=== PATIENT | female | born 1970 | race Caucasian/White ===

== ENCOUNTER 2017-06-14 10:48 | Observation (INO) | payer OTHER ==
[~2017-06-14] VITALS: Ht 165.1 cm; Wt 81.8 kg
[2017-06-14 11:40] LABS: HEMATOCRIT 46.7 % (36.0-46.0); MCH 30.4 PG (29.0-34.0); MCHC 33.8 G/DL (30.0-36.0); MEAN PLAT.VOLUME 10.1 uM^3 (9.5-12.4); PLATELET COUNT 184 K/uL (156-360); RBC DIS.WIDTH-CV 11.9 % (11.8-14.6); RBC DIS.WIDTH-SD 39.2 % (39-53); RED BLOOD COUNT 5.19 M/uL (3.80-5.20)
[2017-06-14 11:52] LABS: CHLORIDE 105 mEq/L (99-109); POTASSIUM 5.1 mEq/L (3.7-5.4); SODIUM 137 mEq/L (136-147)
[2017-06-14 11:54] LABS: GLUCOSE 133 mg/dL (70-99)
[2017-06-14 11:55] LABS: ANION GAP 8 MEQ/L (2-14)
[2017-06-14 11:56] LABS: TOTAL BILIRUBIN 0.7 mg/dL (0.0-1.0)
[2017-06-14 11:58] LABS: ALKALINE PHOSPHATASE 60 IU/L (3-129); GFR ESTIMATE (CALCULATED) > 59 mL/min/
[2017-06-14 11:59] LABS: UREA NITROGEN (BUN) 15 mg/dL (9-23)
[2017-06-14 12:08] LABS: QUANTITATIVE HCG < 4.0 MIU/ML
[2017-06-14 14:00] LABS: ADD MIUA? NO; BILIRUBIN NEGATIVE; BLOOD NEGATIVE; COLOR YELLOW ((YELLOW)); GLUCOSE (STRIP) NEGATIVE; KETONES 5; LEUKOCYTES NEGATIVE; NITRITE NEGATIVE; PROTEIN (STRIP) NEGATIVE; UCUL ADDED? NO; UROBILINOGEN 0.2 MG/DL (0.2-1.0)
[2017-06-14] MEDS ORDERED: BENTYL10 MG PO (14:06)
[2017-06-14] MEDS ORDERED: ZOFRAN ODT4 MG PO (14:06)
[2017-06-14 14:14] LABS: SPECIFIC GRAVITY 1.062 (1.000-1.030)
[2017-06-14] MEDS ORDERED: PANTOPRAZOLE SO20 MG PO (16:05)
[2017-06-14 17:26] VITALS: BP 111/69
[2017-06-14 20:00] VITALS: BP 106/59
[2017-06-14 20:54] LABS: C DIFF TOXIN NEGATIVE (NEGATIVE)
[2017-06-14 21:07] LABS: PROBE CHECK PASS; SPECIMEN PROCESSING CONTROL PASS
[2017-06-14 23:40] VITALS: BP 96/50
[2017-06-15 03:30] VITALS: BP 110/59
[2017-06-15 06:06] LABS: HEMATOCRIT 37.2 % (36.0-46.0); MCH 30.2 PG (29.0-34.0); MCHC 33.6 G/DL (30.0-36.0); MCV 89.9 FL (83-99); RBC DIS.WIDTH-CV 12.2 % (11.8-14.6); WHITE BLOOD COUNT 6.2 K/uL (4.1-10.2)
[2017-06-15 06:07] LABS: PLATELET COUNT UNABLE TO REPORT K/uL (156-360); RED BLOOD COUNT 4.14 M/uL (3.80-5.20)
[2017-06-15 06:11] LABS: ANION GAP 6 MEQ/L (2-14); CHLORIDE 110 MEQ/L (99-109); GFR ESTIMATE (CALCULATED) > 59 mL/min/; GLUCOSE 113 mg/dL (70-99); SAMPLE HEMOLYSIS CHECK 0; SAMPLE ICTERIC CHECK 0; SAMPLE LIPEMIA CHECK 0; SODIUM 140 MEQ/L (136-147); UREA NITROGEN (BUN) 11 mg/dL (9-23)
[2017-06-15 06:15] LABS: POTASSIUM 3.7 MEQ/L (3.7-5.4)
[2017-06-15 09:06] VITALS: BP 118/61
[2017-06-15 11:23] VITALS: BP 108/55
[2017-06-15] MEDS ORDERED: ONDANSETRON ODT4 MG PO (13:33)
== END 2017-06-15 15:17 | disposition home or self-care (01) ==
LOC: EME 10:48 → 5WEST 15:40 → EDOF 15:40 → ENRESERV 15:57 → 5WEST 16:56
PROVIDERS: Physician Assistant Medical
DX: K52.9 Noninfective gastroenteritis and colitis, unspecified (principal); E86.0 Dehydration; G89.29 Other chronic pain; Z85.828 Personal history of other malignant neoplasm of skin; K21.9 Gastro-esophageal reflux disease without esophagitis; K58.9 Irritable bowel syndrome, unspecified; Z87.19 Personal history of other diseases of the digestive system; Z90.710 Acquired absence of both cervix and uterus; Z88.1 Allergy status to other antibiotic agents
CPT/HCPCS: 74177; 80048; 80053; 81003; 84702; 85027; 87177; 87329; 87493; 87506; 99281; 99285; G0378; J1650; J2405; J7030